=== PATIENT | female | born 1995 | race Caucasian/White ===

== ENCOUNTER 2016-05-24 16:50 | Emergency (ER) | payer OTHER ==
[2016-05-24] MEDS ORDERED: ZOFRAN IV ONE (17:53)
[2016-05-24] MEDS ORDERED: DILAUDID IV ONE (17:53)
[2016-05-24] MEDS ORDERED: TORADOL IV ONE (17:53)
[2016-05-24] MEDS ORDERED: FLEXERIL PO ONE (17:54)
[2016-05-24] MEDS ORDERED: DECADRON IV ONE ×2 (17:54→20:40)
--- NOTE | 2016-05-24 17:55 | PROVIDER DOCUMENTATION ---
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 Pt was crouched over and pulling on his pants when she felt severe, sharp, stabbing pain in her back and lost motor sensation to her bilateral lower extremities. 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 Pt was brought to the ER by her family and has been unable to ambulate. In the exam room, pt has full motor and sensation to her bilateral lower extremities but states she does not want to move them due to the pain in her lower back. Pt has a h/o POTS, SVT. Review of Systems - Adult - REVIEW OF SYSTEMS - ADULT Constitutional: reports: no symptoms reported. denies: chills, fatique Eyes: reports: no symptoms reported. denies: blurred vision, double vision Ears, Nose, Mouth & Throat: reports: no symptoms reported. denies: ear pain, nose pain Cardiovascular: reports: no symptoms reported. denies: chest pain, irregular heart rate Respiratory: reports: no symptoms reported. denies: cough, shortness of breath Gastrointestinal: reports: no symptoms reported. denies: abdominal pain, nausea Genitourinary: reports: no symptoms reported. denies: dysuria, flank pain, hematuria Musculoskeletal: reports: bone pain, back pain, joint pain, joint swelling, muscle aches, muscle weakness Integumentary: reports: no symptoms reported. denies: itching, rash Neurological: reports: no symptoms reported. denies: numbness, paresthesia Psychiatric: reports: no symptoms reported. denies: anxiety, emotional problems Endocrine: reports: no symptoms reported. denies: cold intolerance, heat intolerance Hematologic/Lymphatic: reports: no symptoms reported. denies: blood clots, low blood count Allergic/Immunologic: reports: no symptoms reported. denies: allergic reactions , frequent infections All Other Systems: Reviewed and Negative Past History - Adult - PAST MEDICAL HISTORY-ADULT Review of Records: reports: Old Records Reviewed, Nursing Assessment Review, Medications Reviewed, Social history reviewed & non-contributory. Major Childhood Illnesses: reports: denies history Cardiovascular: reports: arrhythmia (svt), palpitations, other (POTS - Postural Orthostatic Tachycardia) Respiratory: reports: asthma Gastrointestinal: reports: denies history Obstetrical/Gynecological: reports: denies history Genitourinary: reports: denies history Musculoskeletal: reports: denies history Neurological: reports: denies history Endocrine/Immune: reports: denies history Other Conditions: reports: denies history - PRIOR SURGERIES/PROCEDURES Surgical/Procedure History: reports: none - IMMUNIZATION STATUS Childhood Immunizations: See Nurse Assessment Flu Vaccine: See Nurse Assessment - FAMILY HISTORY Family History: reviewed, not pertinent Physical Exam-Injury Related - Physical Exam-Injury Related Initial Vital Signs Reviewed: Yes General Appearance: alert, mild distress Eyes: PERRL/EOMI, pink conjunctivae Head, Ears, Nose, Mouth & Throat: normocephalic/atraumatic, moist mucous membranes, normal ENT inspection Neck: non-tender, full range of motion, supple Respiratory: chest non-tender, lungs clear, normal breath sounds, no pleuratic chest pain, no respiratory distress, no accessory muscle use Cardiovascular: normal peripheral pulses, regular rate, rhythm, no edema Abdominal Exam: normal bowel sounds, non tender, soft Lymphatic: no adenopathy Back Exam: normal inspection, no CVA tenderness, no vertebral tenderness Extremity: normal range of motion, non-tender, normal gait Integumentary: normal color, warm/dry, blanching Neurologic: grossly normal, no motor/sensory deficits Psych/Mental Status: normal mood/affect, normal thought content, normal thought process, oriented x 3 - Glascow Coma Score Best Eye Response ([place]): (4) open spontaneously Best Verbal Response (Holiday): (5) oriented Best Motor Response (Holiday): (6) obeys commands Progress - PLAN OF CARE/RESULTS Progress/Plan/Lab Results: Orders Category Date Time Status Saline Loc NOW Care 05/24/16 17:53 Active LUMBAR SPINE W/O CONTRAST [CT] Stat Exams 05/24/16 17:55 Ordered PELVIS W/O CONTRAST [CT] Stat Exams 05/24/16 17:55 Ordered Cyclobenzaprine [Flexeril] Med 05/24/16 17:54 Discontinued 10 mg PO NOW ONE Dexamethasone [Decadron] Med 05/24/16 17:54 Discontinued 10 mg IV NOW ONE Hydromorphone [Dilaudid] Med 05/24/16 17:53 Discontinued 1 mg IV NOW ONE Ketorolac [Toradol] Med 05/24/16 17:53 Discontinued 30 mg IV NOW ONE Ondansetron [Zofran] Med 05/24/16 17:53 Discontinued 4 mg IV NOW ONE Vital Signs - 24 hr 05/24/16 17:11 Temperature 98.3 F Pulse Rate 98 H Respiratory 20 Rate Blood Pressure 123/70 O2 Sat by Pulse 100 Oximetry - CT/MRI 1 CT Study: Lumbar Spine, Pelvis Impression: Abnormal (L SPINE: R paracentral and near lateral HNP at L5-S1; slight narrowing of spinal canal at L4-5; no fx or subluxation. PELVIS: negative - prelim radiology report) Departure - Departure Time of Disposition Order: 20:01 DIAGNOSIS: HNP (herniated nucleus pulposus), lumbar Disposition: HOME 01 Certified Medical Emergency: Emergent Condition: Stable Additional Instructions: FOLLOW UP [facility]AN[facility] VALLEJO [facility] FOR FURTHER EVALUATION OR THE SPINE SURGEON OF YOUR CHOICE. ED Follow Up Instructions: You have been treated by a care provider in the Emergency Department. These instructions are being provided to you so you can have an understanding of how to care for yourself upon discharge. Upon discharge from the Emergency Department, you are responsible for making arrangements for follow-up care by a physician of your choice. Take all prescribed medications as directed. Return to the Emergency Department immediately for any new or worsening symptoms. You may call the Physician Referral phone number at [phone] to obtain a list of Physicians who are taking new patients. Prescriptions: Cyclobenzaprine [Flexeril] 10 mg PO TID #20 tablet Methylprednisolone [Medrol Dosepak] 4 mg PO DIRECTED #1 package Ibuprofen [Motrin] 800 mg PO Q8H PRN PRN #20 tablet PRN Reason: inflammation Hydrocodone/APAP 7.5 mg/325 mg [[place]-7.5] 1 each PO Q6H PRN PRN #10 tablet PRN Reason: Pain Omeprazole [Prilosec] 20 mg PO DAILY@0700 #20 capsule Referrals: Mil Noyola [Primary Care Provider] - Lizette,Dionicio Danny, DO [STAFF PHYSICIAN] - Forms: Work Excuse Attestation - Physician/ YOAV Attestation Patient care was provided by Advanced Practice Provider:: Yes Advanced Practice Provider:: Dionicio Soriano Advanced Practice Provider documentation review:: The Mid-level provider documentation, treatment plan and medical decision making was reviewed by the physician who agrees with all treatment and medical decision making by the MLP.
[2016-05-24] MEDS ORDERED: MORPHINE IV ONE (20:21)
[2016-05-24 20:26] VITALS: BP 117/71
--- NOTE | 2016-05-24 20:53 | Diag Imaging Result Document ---
PROCEDURE NAME: LUMBAR SPINE W/O CONTRAST - 05/24/2016 STUDY: CT lumbar spine without. There was good alignment to the lumbar spine. No compressed vertebrae. No other fracture. No subluxation. There is a right lateral disk herniation at L5-S1 narrowing the right neural foramen and causing mild spinal stenosis. No other disk herniation although there is mild bulging to the L4-5 disk. IMPRESSION: 1. No fracture. 2. Herniated disk at L5-S1. A preliminary report was given at 7:34 p.m.
--- NOTE | 2016-05-24 20:55 | Diag Imaging Result Document ---
PROCEDURE NAME: PELVIS W/O CONTRAST - 05/24/2016 STUDY: CT bony pelvis without contrast. No fracture to either hip. No hip dislocation. No widening to the pubic symphysis. No separation at the sacroiliac joints. A 13 mm benign lytic lesion in the medial right acetabulum. IMPRESSION: 1. No fracture or dislocation. 2. There is a small benign lytic lesion in the right acetabulum. A preliminary report was given at 7:34 p.m. MTDD
== END 2016-05-24 20:54 | disposition home or self-care (01) ==
LOC: ED 16:50
DX: M51.26 Other intervertebral disc displacement, lumbar region (principal); M54.5 Low back pain; M79.1 Myalgia; M25.40 Effusion, unspecified joint; Z79.899 Other long term (current) drug therapy
CPT/HCPCS: 72131; 72192; J1170; J1885; J2270; J2405